=== PATIENT | female | born 1980 | race African-American/Black ===

== ENCOUNTER 2018-04-03 10:52 | Emergency (ER) | payer SELFPAY ==
[~2018-04-03] VITALS: Ht 162.6 cm; Wt 89.8 kg
--- NOTE | 2018-04-03 11:50 | PHYS DOC ---
Past Medical History Past Medical History: Migraines Past Surgical History: No Surgical History Alcohol Use: None Drug Use: None Adult General Chief Complaint Chief Complaint: HEADACHE HPI HPI Patient is a 38 year old female who presents with history of cluster headaches this been having a headache for the last week that has been occurring every day and they last for about 2-3 hours. Patient states today is worse usual and she has photophobia, right ear pain, nausea, tingling to the right side of her face and tingling of the right side of her mouth. Patient speaks in full clear sentences. Review of Systems Review of Systems Constitutional: Denies fever or chills [] Eyes: Denies change in visual acuity, redness, or eye pain [] HENT: Denies nasal congestion or sore throat [] Respiratory: Denies cough or shortness of breath [] Cardiovascular: No additional information not addressed in HPI [] GI: Denies abdominal pain, nausea, vomiting, bloody stools or diarrhea [] : Denies dysuria or hematuria [] Musculoskeletal: Denies back pain or joint pain [] Integument: Denies rash or skin lesions [] Neurologic: Denies headache, focal weakness or sensory changes [] Endocrine: Denies polyuria or polydipsia [] All other systems were reviewed and found to be within normal limits, except as documented in this note. Current Medications Current Medications Current Medications Medications (Trade) Dose Ordered Sig/Bret Start Time Stop Time Status Last Admin Dose Admin Diphenhydramine HCl (Benadryl) 50 mg 1X ONCE 04/03/18 12:00 04/03/18 12:01 DC Ketorolac Tromethamine (Toradol 30mg Vial) 30 mg 1X ONCE 04/03/18 12:00 04/03/18 12:01 DC 04/03/18 11:58 30 MG Prochlorperazine Edisylate (Compazine) 10 mg 1X ONCE 04/03/18 12:00 04/03/18 12:01 DC 04/03/18 11:57 10 MG Sodium Chloride 1,000 ml @ 1,000 mls/hr 1X ONCE 04/03/18 12:00 04/03/18 12:34 DC 04/03/18 11:56 1,000 MLS/HR Allergies Allergies Allergies Coded Allergies Type Severity Reaction Last Updated Verified No Known Drug Allergies 04/03/18 No Physical Exam Physical Exam Constitutional: Well developed, well nourished, no acute distress, non-toxic appearance. [] HENT: Normocephalic, atraumatic, bilateral external ears normal, oropharynx moist, no oral exudates, nose normal. [] Eyes: PERRLA, EOMI, conjunctiva normal, no discharge. [] Neck: Normal range of motion, no tenderness, supple, no stridor. [] Cardiovascular:Heart rate regular rhythm, no murmur [] Lungs & Thorax: Bilateral breath sounds clear to auscultation [] Abdomen: Bowel sounds normal, soft, no tenderness, no masses, no pulsatile masses. [] Skin: Warm, dry, no erythema, no rash. [] Back: No tenderness, no CVA tenderness. [] Extremities: No tenderness, no cyanosis, no clubbing, ROM intact, no edema. [] Neurologic: Alert and oriented X 3, normal motor function, normal sensory function, no focal deficits noted. [] Psychologic: Affect normal, judgement normal, mood normal. [] Current Patient Data Vital Signs Vital Signs Date Time Temp Pulse Resp B/P (MAP) Pulse Ox O2 Delivery O2 Flow Rate FiO2 04/03/18 12:00 78 97 04/03/18 11:05 98.2 20 150/100 (117) Room Air 98.2 Lab Values Laboratory Tests Test 04/03/18 11:42 04/03/18 12:15 White Blood Count 7.9 x10^3/uL (4.0-11.0) Red Blood Count 4.45 x10^6/uL (3.50-5.40) Hemoglobin 13.4 g/dL (12.0-15.5) Hematocrit 39.7 % (36.0-47.0) Mean Corpuscular Volume 89 fL (79-100) Mean Corpuscular Hemoglobin 30 pg (25-35) Mean Corpuscular Hemoglobin Concent 34 g/dL (31-37) Red Cell Distribution Width 13.5 % (11.5-14.5) Platelet Count 236 x10^3/uL (140-400) Neutrophils (%) (Auto) 66 % (31-73) Lymphocytes (%) (Auto) 27 % (24-48) Monocytes (%) (Auto) 5 % (0-9) Eosinophils (%) (Auto) 1 % (0-3) Basophils (%) (Auto) 1 % (0-3) Neutrophils # (Auto) 5.2 x10^3uL (1.8-7.7) Lymphocytes # (Auto) 2.2 x10^3/uL (1.0-4.8) Monocytes # (Auto) 0.4 x10^3/uL (0.0-1.1) Eosinophils # (Auto) 0.1 x10^3/uL (0.0-0.7) Basophils # (Auto) 0.0 x10^3/uL (0.0-0.2) Sodium Level 141 mmol/L (136-145) Potassium Level 3.9 mmol/L (3.5-5.1) Chloride Level 104 mmol/L (98-107) Carbon Dioxide Level 26 mmol/L (21-32) Anion Gap 11 (6-14) Blood Urea Nitrogen 8 mg/dL (7-20) Creatinine 0.8 mg/dL (0.6-1.0) Estimated GFR (Cockcroft-Gault) 98.2 Glucose Level 124 mg/dL (70-99) H Calcium Level 9.2 mg/dL (8.5-10.1) POC Urine HCG, Qualitative Hcg negative (Negative) Laboratory Tests 04/03/18 11:42 Laboratory Tests 04/03/18 11:42 EKG EKG [] Radiology/Procedures Radiology/Procedures [] Course & Med Decision Making Course & Med Decision Making Patient is a 38 year old female who presents with history of cluster headaches this been having a headache for the last week that has been occurring every day and they last for about 2-3 hours. Patient states today is worse usual and she has photophobia, right ear pain, nausea, tingling to the right side of her face and tingling of the right side of her mouth. Patient speaks in full clear sentences. Patient is ambulatory. Patient states that she was in class today the pain was worse than usual but does feel like her cluster headaches that she' s been in the past and that she was starting to draw out the right side of her mouth. The patient when I am examining the patient talking the patient she speaks in full clear sentences, follows me in the room, moves around in the bed and uses all extremities. 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 She is alert and oriented and answers all questions appropriately. She is not currently drooling. When the patient speaks her facial movements are equal. Patient did drive herself to the hospital and has a steady gait with ambulation. When looking at the patient there is no facial droop. Patient's ear is very tender to examine it and could not get a good view of the ear tympanic membrane. Heart rate is regular without murmur. Heart rate 92, Blood pressure is 150/100 the patient is very anxious and in a lot of pain. Patient rates her pain a 10 out of 10. I did have Dr. Nunes go in and examine this patient himself. Dr. Nunes agrees with the plan of this patient. Patient's blood work is unremarkable. Patient is given IV bolus of normal saline, IV Benadryl, IV Toradol, IV Compazine. 1200: Patient is alert and oriented and states that her child is sick and she needs to leave. Patient is ambulatory and states her symptoms have resolved. Patient states that she is feeling better and her pain is tolerable at a 6 out of 10. Patient's noticeably more comfortable and is not crying and is sitting up in bed. Told the patient I will give her a prescription for medication double help prevent migraine headaches but she needs to follow-up with her doctor as soon as possible. She is also stated that her blood pressure has been very elevated in the past she has a history of blood pressure medication but was no longer taking it. Patient states that her insurance does not start again until May. Patient is given Inderal prescription. Dragon Disclaimer [place] Disclaimer This electronic medical record was generated, in whole or in part, using a voice recognition dictation system. Departure Departure Impression: Primary Impression: Migraine Disposition: HOME, SELF-CARE Condition: STABLE Referrals: NO PCP (PCP) Patient Instructions: Migraine Headache Additional Instructions: FOLLOW UP WITH YOUR DOCTOR SOON POSSIBLE. Scripts Propranolol Hcl (INDERAL LA) 80 Mg Cap.sa.24h 1 CAP PO DAILY, #20 CAP 5 Refills Prov: LIV CARPIOEDMUNDO Prado APRN 04/03/18 Problem Qualifiers Primary Impression: Migraine Migraine type: unspecified Status migrainosus presence: without status migrainosus Intractability: not intractable Qualified Codes: G43.909 - Migraine, unspecified, not intractable, without status migrainosus FAYE CARPIO [employer]NAL [employer]ICATION[employer] MAINTAINER Apr 03, 2018 11:49
[2018-04-03 11:53] LABS: BASO % 1 % (0-3); EOS # 0.1 x10^3/uL (0.0-0.7); EOS % 1 % (0-3); HEMATOCRIT 39.7 % (36.0-47.0); HEMOGLOBIN 13.4 g/dL (12.0-15.5); LYMPH # 2.2 x10^3/uL (1.0-4.8); LYMPH % 27 % (24-48); MEAN CORPUSCULAR HEMOGLOBIN 30 pg (25-35); MEAN CORPUSCULAR HGB CONC 34 g/dL (31-37); MEAN CORPUSCULAR VOLUME 89 fL (79-100); MONO # 0.4 x10^3/uL (0.0-1.1); MONO % 5 % (0-9); NEUT # 5.2 x10^3uL (1.8-7.7); NEUT % 66 % (31-73); PLATELET COUNT 236 x10^3/uL (140-400); RED BLOOD COUNT 4.45 x10^6/uL (3.50-5.40); RED CELL DISTRIBUTION WIDTH 13.5 % (11.5-14.5); WHITE BLOOD COUNT 7.9 x10^3/uL (4.0-11.0)
[2018-04-03 12:00] VITALS: BP 141/90
[2018-04-03] MEDS ORDERED: KETOROLAC 30 MG/ML VIAL. IV ONE (12:00)
[2018-04-03] MEDS ORDERED: IV NORMAL SALINE 1000ML BAG 1,000 ML IV ONE (12:00)
[2018-04-03] MEDS ORDERED: diphenhydrAMINE 50 MG/ML VIAL IVP ONE (12:00)
[2018-04-03] MEDS ORDERED: PROCHLORPERAZINE 10 MG/2 ML VIAL. IV ONE (12:00)
[2018-04-03 12:05] LABS: CALCIUM 9.2 mg/dL (8.5-10.1); CREATININE 0.8 mg/dL (0.6-1.0); GFR 98.2; POTASSIUM 3.9 mmol/L (3.5-5.1)
[2018-04-03] MEDS ORDERED: PROP80CA12 PO (12:27)
== END 2018-04-03 12:30 | disposition home or self-care (01) ==
LOC: ER 10:52
DX: G43.909 Migraine, unspecified, not intractable, without status migrainosus (principal)
CPT/HCPCS: 36415; 80048; 81025; 85025; 96374; 96375; 99284; J0780; J1885; J7030